=== PATIENT | male | born 1965 | race American Indian/Alaskan Native ===

== ENCOUNTER 2017-09-14 02:12 | Emergency (ER) | payer MEDICAID ==
[2017-09-14 03:07] VITALS: BP 116/73
[2017-09-14 04:17] LABS: BUN/Creatinine Ratio 18; Blood Urea Nitrogen 21 mg/dL (9-20); Calcium 7.8 mg/dL (8.4-10.2); Hemolysis Index 4
[2017-09-14 04:18] LABS: Mean Corpuscular HGB Conc 29 % (32-34); Platelet Count 663 K/mm3 (140-440); Red Blood Count 4.08 M/mm3 (3.65-5.03)
[2017-09-14 04:22] LABS: Hematocrit 24.4 % (35.5-45.6); Mean Corpuscular Hemoglobin 17 pg (28-32); Mean Corpuscular Volume 60 fl (84-94); Red Cell Distribution Width 21.6 % (13.2-15.2)
[2017-09-14 05:52] LABS: Mucus,Urine FEW /HPF
[2017-09-14 05:54] LABS: Benzodiazepines Screen,Urine PRESUMPTIVE NEGATIVE; Methadone Screen,Urine PRESUMPTIVE NEGATIVE; Opiate Screen,Urine PRESUMPTIVE NEGATIVE
[2017-09-14 05:59] LABS: Bilirubin,Urine NEG (Negative); Blood,Urine NEG (Negative); Color,Urine Yellow (Yellow); Protein,Urine <15 mg/dL mg/dL (Negative)
[2017-09-14 06:06] LABS: Total Cells Counted 100
[2017-09-14 06:07] LABS: Anisocytosis 1+; Basophils % (Manual) 0 % (0.0-1.8); Hypochromasia 2+; Platelet Estimate Consistent w Auto; Target Cells 1+
[2017-09-14 06:09] LABS: Amphetamine Screen,Urine PRESUMPTIVE POSITIVE; Cannabinoid Screen,Urine PRESUMPTIVE POSITIVE; Cocaine Screen,Urine PRESUMPTIVE POSITIVE
[2017-09-14] MEDS ORDERED: BENADRYL IV ONE (11:07)
[2017-09-14] MEDS ORDERED: LIDOCAINE VISCOUS 2% PO ONE (11:07)
[2017-09-14] MEDS ORDERED: NACL 0.9% 1000 ML 1,000 ML IV ONE (11:07)
[2017-09-14] MEDS ORDERED: BENADRYL PO ONE (11:30)
[2017-09-14] MEDS ORDERED: DELTASONE PO ONE (11:30)
[2017-09-14] MEDS ORDERED: MOTRIN PO ONE (11:30)
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
== END 2017-09-14 12:25 | disposition home or self-care (01) ==
LOC: ED 02:12
DX: K13.79 Other lesions of oral mucosa (principal); E86.0 Dehydration; I10 Essential (primary) hypertension; M19.90 Unspecified osteoarthritis, unspecified site; F17.200 Nicotine dependence, unspecified, uncomplicated
CPT/HCPCS: 36415; 80048; 80307; 81001; 85007; 85025; 99283; G0480; J7512; 80320

== ENCOUNTER 2017-09-19 08:29 | Emergency (ER) | payer MEDICAID ==
[2017-09-19 08:59] VITALS: BP 111/87
--- NOTE | 2017-09-19 11:11 | Cat Scan Report ---
CT HEAD WITHOUT CONTRAST: 09/19/17 08:29:00 CLINICAL: Trauma, headache and reported loss of consciousness. TECHNIQUE: 2.5-mm noncontrast scans. COMPARISON:None FINDINGS: The ventricles and sulci are normal for age. No abnormal density. No mass or mass effect. No hemorrhage, edema or extra-axial collection. Mild bilateral mucoperiosteal thickening involving ethmoid, maxillary and sphenoid sinuses. No air-fluid levels. Normal orbits and soft tissues. The calvarium and skull base are intact. IMPRESSION: Mild sinusitis and otherwise normal.
== END 2017-09-19 08:59 | disposition left against medical advice (07) ==
LOC: ED 08:29
DX: M54.9 Dorsalgia, unspecified (principal); Z53.21 Procedure and treatment not carried out due to patient leaving prior to being seen by health care provider
CPT/HCPCS: 70450

== ENCOUNTER 2017-10-20 01:57 | Emergency (ER) | payer MEDICAID ==
[2017-10-20 02:12] VITALS: BP 129/96
[2017-10-20 02:41] LABS: Alanine Aminotransferase 16 units/L (7-56); Albumin 3.9 g/dL (3.9-5); BUN/Creatinine Ratio 20; Blood Urea Nitrogen 16 mg/dL (9-20); Calcium 8.3 mg/dL (8.4-10.2); Hemolysis Index 0
[2017-10-20 03:19] LABS: Hematocrit 32.4 % (35.5-45.6); Hemoglobin 9.9 gm/dl (11.8-15.2); Mean Corpuscular HGB Conc 31 % (32-34); Platelet Count 651 K/mm3 (140-440); Red Blood Count 5.11 M/mm3 (3.65-5.03)
[2017-10-20 03:26] LABS: Mean Corpuscular Hemoglobin 19 pg (28-32); Mean Corpuscular Volume 63 fl (84-94); Red Cell Distribution Width 27.7 % (13.2-15.2)
[2017-10-20 04:35] LABS: Basophils % (Manual) 0 % (0.0-1.8); Total Cells Counted 100
[2017-10-20 04:36] LABS: Anisocytosis 3+; Band Neutrophils # (Manual) 0.5 K/mm3; Eosinophils % (Manual) 0 % (0.0-4.3); Hypochromasia 2+; Schistocytes Few; Target Cells Few
[2017-10-20 04:37] LABS: Burr Cells 1+; Poikilocytosis 1+
[2017-10-20 04:39] LABS: Platelet Estimate Appears Increased
[2017-10-20 07:06] LABS: Bilirubin,Urine NEG (Negative); Blood,Urine NEG (Negative); Color,Urine Yellow (Yellow); Mucus,Urine FEW /HPF; Protein,Urine <15 mg/dL mg/dL (Negative)
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
== END 2017-10-20 08:53 | disposition home or self-care (01) ==
LOC: ED 01:57
DX: K52.9 Noninfective gastroenteritis and colitis, unspecified (principal); I10 Essential (primary) hypertension; F17.200 Nicotine dependence, unspecified, uncomplicated
CPT/HCPCS: 36415; 80053; 81001; 85007; 85025; 99283

== ENCOUNTER 2017-12-17 12:52 | Emergency (ER) | payer MEDICAID ==
[2017-12-17 13:46] VITALS: BP 102/64
[2017-12-17] MEDS ORDERED: NACL 0.9% 1000 ML 1,000 ML IV ONE (16:06)
[2017-12-17] MEDS ORDERED: ZOFRAN IV ONE (16:06)
[2017-12-17] MEDS ORDERED: SUBLIMAZE IV ONE (16:07)
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
[2017-12-17 16:12] LABS: Bilirubin,Urine SM (Negative); Blood,Urine NEG (Negative); Color,Urine Yellow (Yellow); Mucus,Urine 2+ /HPF; WBC,Urine < 1.0 /HPF (0.0-6.0)
[2017-12-17] MEDS ORDERED: SUBLIMAZE ONE (16:15)
[2017-12-17 16:17] LABS: Ictotest,Urine Negative (Negative)
[2017-12-17 16:56] LABS: Hematocrit 28.5 % (35.5-45.6); Hemoglobin 8.9 gm/dl (11.8-15.2); Mean Corpuscular HGB Conc 31 % (32-34); Platelet Count 592 K/mm3 (140-440); Red Blood Count 4.12 M/mm3 (3.65-5.03)
[2017-12-17 16:57] LABS: Mean Corpuscular Hemoglobin 22 pg (28-32); Mean Corpuscular Volume 69 fl (84-94)
[2017-12-17 17:09] LABS: Alanine Aminotransferase 12 units/L (7-56); Albumin 3.9 g/dL (3.9-5); BUN/Creatinine Ratio 19; Blood Urea Nitrogen 15 mg/dL (9-20); Calcium 8.8 mg/dL (8.4-10.2); Hemolysis Index 37; Lipase 19 units/L (13-60)
[2017-12-17] MEDS ORDERED: ALUM-MAG HYDROX-SIMETH 200-200-20MG/5ML PO ONE (17:14)
[2017-12-17] MEDS ORDERED: LIDOCAINE VISCOUS 2% PO ONE (17:14)
[2017-12-17] MEDS ORDERED: PROTONIX IV ONE (17:15)
[2017-12-17 17:19] LABS: Bilirubin,Direct < 0.2 mg/dL (0-0.2)
[2017-12-17 17:30] LABS: Total Cells Counted 100
[2017-12-17 17:31] LABS: Anisocytosis 3+; Hypochromasia 2+; Platelet Estimate Consistent w Auto; Poikilocytosis 1+; Target Cells 1+
--- NOTE | 2017-12-17 18:50 | XRay Report ---
FINAL REPORT PROCEDURE: XR ABD SERIES W CXR 1V TECHNIQUE: Abdominal series complete, including supine and upright AP views of the abdomen and frontal chest. HISTORY: Abdominal pain. COMPARISON: CT scan dated 09/20/2017. FINDINGS: Heart: Normal. Mediastinum/Vessels: Aortic tortuosity. Retrocardiac density with small amount of air. Paramediastinal clips. Lungs/Pleural space: Subtle ill-defined opacities about the periphery of the right upper lobe. Mild elevation of the right diaphragm. Bowel gas pattern: Nonobstructive. Moderate stool in the proximal colon. Air in the rectum. Masses or calcifications: None. Bony structures: No acute osseous abnormality. Other: No free intraperitoneal air. Clips in the epigastrium. IMPRESSION: Subtle ill-defined opacities in the periphery of the right upper lobe, may correspond to spiculated density seen on CT scan. Retrocardiac density with small amount of air felt to be related to patient's gastric interposition. Nonobstructive bowel gas pattern. Moderate stool, consider constipation.
== END 2017-12-17 18:59 | disposition home or self-care (01) ==
LOC: ED 12:52
DX: K29.70 Gastritis, unspecified, without bleeding (principal); K59.00 Constipation, unspecified; I10 Essential (primary) hypertension; F17.200 Nicotine dependence, unspecified, uncomplicated; M19.90 Unspecified osteoarthritis, unspecified site
CPT/HCPCS: 36415; 74022; 80048; 80074; 81001; 83690; 85007; 85025; 96361; 96374; 96375; 99284; C9113; J2405; J3010; J7030

== ENCOUNTER 2018-01-21 14:48 | Emergency (ER) | payer MEDICAID ==
[2018-01-21 16:24] VITALS: BP 122/88
== END 2018-01-21 17:40 | disposition left against medical advice (07) ==
LOC: ED 14:48
DX: R42 Dizziness and giddiness (principal); R51 Headache; R06.02 Shortness of breath; Z53.21 Procedure and treatment not carried out due to patient leaving prior to being seen by health care provider
CPT/HCPCS: 82962; 93005; 93010

== ENCOUNTER 2018-02-11 11:00 | Emergency (ER) | payer MEDICAID ==
[2018-02-11 11:48] VITALS: BP 146/99
== END 2018-02-11 11:45 | disposition left against medical advice (07) ==
LOC: ED 11:00
DX: R06.02 Shortness of breath (principal); R10.9 Unspecified abdominal pain; Z53.21 Procedure and treatment not carried out due to patient leaving prior to being seen by health care provider

== ENCOUNTER 2018-02-21 14:14 | Emergency (ER) | payer MEDICAID ==
[2018-02-21] MEDS ORDERED: CLEOCIN PO ONE (16:56)
[2018-02-21] MEDS ORDERED: ULTRAM PO ONE (16:56)
--- NOTE | 2018-02-21 17:01 | Emergency Department Report ---
Chief Complaint: Dental/Oral Stated Complaint: RT SIDE ABSCESS/PAIN/DIZZNESS Time Seen by Provider: 02/21/18 16:49 - HPI History of Present Illness: 52-year-old [place] male presents to the emergency department with 2 complaints. First, the patient has a complaint of a 2 day history of pain and swelling around the right lower bicuspids with concern for a dental infection. No drooling or trismus. No fever. Secondly, patient complains of a headache that starts in the upper back, goes up the back and that affects the posterior head. No photophobia, vision change, slurred speech or any other neurological deficits. He has a past medical history of hypertension for which he takes HCTZ 12.5 mg daily but he has not taken in a while and is out of the medication. He is a tobacco smoker. - ROS Review of Systems: Positive for headache, tooth pain and dental swelling Negative for fever, vision change, photophobia, chest pain, shortness of breath - Exam Vital Signs: Vital Signs 02/21/18 14:29 Temperature 98.9 F Pulse Rate 100 H Respiratory 16 Rate Blood Pressure 159/116 O2 Sat by Pulse 98 Oximetry Physical Exam: No palpable or visible dental abscess but he has some tenderness to palpation along the right lower jawline to the cuspids and bicuspids. No drooling or trismus. Pupils equal reactive to light bilaterally. Extraocular motion intact. Cranial nerves II 12 grossly intact. MSE screening note: Focused history and physical exam performed. Due to findings the following was ordered: Patient has been given a tramadol for discomfort. I have ordered a CT scan of the head without contrast. ED Disposition for MSE Condition: Stable
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
--- NOTE | 2018-02-21 17:53 | Cat Scan Report ---
FINAL REPORT PROCEDURE: CT HEAD/BRAIN WO CON TECHNIQUE: Computerized tomography of the head was performed without contrast material. HISTORY: headache COMPARISON: No prior studies are available for comparison. FINDINGS: No CT evidence of intracranial mass, hemorrhage, acute territorial infarction, or hydrocephalus. The intracranial arteries are symmetric in density. Calvarium is intact. The visualized paranasal sinuses are aerated. There is a small amount of fluid density in the right mastoid. IMPRESSION: No CT evidence of acute intracranial abnormality. There is a small amount of fluid density in the right mastoid
[2018-02-21 18:27] VITALS: BP 137/98
== END 2018-02-21 18:27 | disposition home or self-care (01) ==
LOC: ED 14:14
DX: K08.89 Other specified disorders of teeth and supporting structures (principal); R51 Headache; I10 Essential (primary) hypertension; M19.90 Unspecified osteoarthritis, unspecified site; F17.210 Nicotine dependence, cigarettes, uncomplicated
CPT/HCPCS: 70450; 99283